=== PATIENT | male | born 1970 | race Caucasian/White ===

== ENCOUNTER 2023-09-07 22:36 | Inpatient (IN) | payer MEDICARE, SELFPAY ==
[2023-09-07 19:12] VITALS: BP 166/77
[2023-09-07 19:28] LABS: % Basophils 0.5 % (0-2); % Eosinophils 0.9 % (0-6); % Immature Granulocytes 0.8 % (0-0.5); % Neutrophils 73.8 % (42.2-75.2); Absolute Basophils 0.1 10^3/uL (0-0.2); Absolute Eosinophils 0.1 10^3/uL (0-0.7); Absolute Immature Granulocytes 0.1 10^3/uL (0-0.05); Absolute Lymphocytes 2.4 10^3/uL (1.2-3.4); Absolute Monocytes 0.8 10^3/uL (0.1-0.6); Absolute Neutrophils 9.7 10^3/uL (1.4-6.5); Hemoglobin 15.1 g/dL (13.0-18.0); Mean Corp Hgb Conc. 35.1 g/dL (33.0-37.0); Mean Corpuscular Hgb 30.9 pg (27.0-31.0); Mean Corpuscular Volume 88.1 fL (80.0-94.0); Mean Platelet Volume 7.8 fL (7.4-10.4); Nucleated Red Blood Cells % 0 % (-); Platelet Count 436 10^3/uL (130-400); Red Blood Cell Count 4.88 10^6/uL (4.70-6.10); Red Cell Dist. Width 14.5 % (11.5-14.5); White Blood Cell Count 13.1 10^3/uL (4.8-10.8)
[2023-09-07 19:34] VITALS: BMI 26.1
--- NOTE | 2023-09-07 19:37 | ED.GENMED ---
History of Present Illness
<LYNDON Winters - Last Filed: 09/07/23 21:51>
General
Chief Complaint: Skin Problem
Source: patient
Exam Limitations: none
Time Seen by Provider: 09/07/23 19:26
History of Present Illness
History of Present Illness:
This is a 53 year old male that comes in with c/o redness and swelling of the left thigh. States that he injects his thighs all the time as he is on Testosterone replacement therapy. States that he did an injection on Tuesday. states that he cleans
the area well and uses a fresh needle all the time. States that he started with swelling of the thigh and he went to yesterday. sates that he was given Bactrim DS and Cefpodoxime 200mg BID. States that he has had a total of 4 doses and his thigh
is more swollen and red and the lump id getting bigger. Denies any fever, chills, chest pain, SOB, abd pain, nausea, vomiting, diarrhea, headache, dizziness, urinary burning.
Past History
<LYNDON Winters - Last Filed: 09/07/23 21:51>
Past History
ED Past Medical History: Other (Testosterone replacement); Negative Asthma, HTN, Hypercholesterolemia or NIDDM
ED Past Surgical History: Appendectomy and Orthopedic (Bilateral knee surgery, Bilateral wrist surgery and bilateral elbow surgery)
Social History
Tobacco: Former smoker
Alcohol: Occasional
Personal: Single
Living: alone
Employment: Employed
Review of Systems
<LYNDON Winters - Last Filed: 09/07/23 21:51>
Review of Systems
All Other Systems: ROS reviewed and negative except as documented in HPI and ROS
Constitutional: Reports no symptoms; Denies fever or chills
EENT: Reports no symptoms
Respiratory: Reports no symptoms; Denies cough or trouble breathing
Cardiac: Reports no symptoms; Denies chest pain
ABD/GI: Reports no symptoms; Denies abdominal pain, nausea, vomiting or diarrhea
: Reports no symptoms; Denies dysuria, frequency or urgency
Musculoskeletal: Reports no symptoms
Skin: Reports other (left thigh redness with hardened area )
Neurological: Reports no symptoms; Denies dizzy or headache
Psychiatric: Reports no symptoms
Phy Exam
<LYNDON Winters - Last Filed: 09/07/23 21:51>
General Physical Exam
General Presentation: well appearing and no apparent distress
General age: appears stated age
General Skin: warm and dry
General Habitus: normal
General Mental: alert
General Hydration: appears well hydrated
ENT Exam
ENT Exam: TM's normal, pharynx normal and neck supple
Eye Exam
Eye Exam: EOMI
Cardiovascular Exam
Cardiovascular Exam: regular rate/rhythm, no edema, no murmur and normal peripheral pulses
Pulmonary Exam
Pulmonary Exam: lungs clear, no respiratory distress, no rales, chest non tender, no crackles, no rhonchi, no wheezing and no cough
Gastrointestinal Exam
Gastrointestinal Exam: normal bowel sounds, non tender, soft, no organomegaly, no pulsatile mass and non distended
Musculoskeletal Exam
Musculoskeletal Exam: full ROM
Skin Exam
Skin Exam: normal color, warm/dry, no petechia and redness (Left medial thigh onto the anterior aspect of the left thigh with hard palpable lump upper thigh. Tender to palpation)
Psychiatric Exam
Psychiatric Exam: normal mood/affect
Course
<LYNDON Winters - Last Filed: 09/07/23 21:51>
Orders/Labs/Results
Orders:
Orders
09/07/23 19:20
Complete Blood Count/With Diff Urgent
Comprehensive Metabolic Panel Urgent
Lactic Acid Urgent
09/07/23 19:42
US Non Vasc LOWER Ext LT Urgent
Comment: check for fluid or abscess
Reason For Exam: Left thigh lump.
Abnormal Lab Results
09/07/23
19:20
WBC 13.1 H 10^3/uL
(4.8-10.8)
Plt Count 436 H 10^3/uL
(130-400)
Abs Immat Gran (auto) 0.1 H 10^3/uL
(0-0.05)
Absolute Neuts (auto) 9.7 H 10^3/uL
(1.4-6.5)
Absolute Monos (auto) 0.8 H 10^3/uL
(0.1-0.6)
Immature Gran % 0.8 H %
(0-0.5)
Lymphocytes % 18.0 L %
(20.5-51.1)
Calcium 10.4 H mg/dl
(8.4-10.2)
AST 72 H U/L
(17-59)
ALT 194 H U/L
(0-50)
09/07/23 19:20
09/07/23 19:20
Leukocytosis, Plt slightly elevated. calcium sligtly elevated. AST/ALT elevation. Lactic acid normal at 1.2
Vital Signs
Initial and Last Documented VS:
Initial Vital Signs
Temp Pulse Resp BP Pulse Ox
97.9 F 85 18 166/77 98
09/07/23 19:12 09/07/23 19:12 09/07/23 19:12 09/07/23 19:12 09/07/23 19:12
Last Documented Vital Signs
Temp Pulse Resp BP Pulse Ox
97.9 F 72 18 122/65 99
09/07/23 19:12 09/07/23 20:30 09/07/23 20:30 09/07/23 21:00 09/07/23 21:00
Ana Lauralt;DO Salo Lyman Last Filed: 09/07/23 20:51>
Orders/Labs/Results
Orders:
Orders
09/07/23 19:20
Complete Blood Count/With Diff Urgent
Comprehensive Metabolic Panel Urgent
Lactic Acid Urgent
09/07/23 19:42
US Non Vasc LOWER Ext LT Urgent
Comment: check for fluid or abscess
Reason For Exam: Left thigh lump.
Abnormal Lab Results
09/07/23
19:20
WBC 13.1 H 10^3/uL
(4.8-10.8)
Plt Count 436 H 10^3/uL
(130-400)
Abs Immat Gran (auto) 0.1 H 10^3/uL
(0-0.05)
Absolute Neuts (auto) 9.7 H 10^3/uL
(1.4-6.5)
Absolute Monos (auto) 0.8 H 10^3/uL
(0.1-0.6)
Immature Gran % 0.8 H %
(0-0.5)
Lymphocytes % 18.0 L %
(20.5-51.1)
Calcium 10.4 H mg/dl
(8.4-10.2)
AST 72 H U/L
(17-59)
ALT 194 H U/L
(0-50)
09/07/23 19:20
09/07/23 19:20
Vital Signs
Initial and Last Documented VS:
Initial Vital Signs
Temp Pulse Resp BP Pulse Ox
97.9 F 85 18 166/77 98
09/07/23 19:12 09/07/23 19:12 09/07/23 19:12 09/07/23 19:12 09/07/23 19:12
Last Documented Vital Signs
Temp Pulse Resp BP Pulse Ox
97.9 F 72 18 122/65 99
09/07/23 19:12 09/07/23 20:30 09/07/23 20:30 09/07/23 21:00 09/07/23 21:00
Procedures
<LYNDON Winters - Last Filed: 09/07/23 21:51>
Incision/Drainage/Joint Aspiration
Left Anterior Thigh:
Anethesia: 1% Lidocaine with Epi
Preparation: cleaned with Betadine
Type of procedure: incise
Nature of site: abscess
Description of abscess: greater than 3cm
How much fluid was obtained?: large amount
Fluid description: bloody (with white puss)
Treatment: packed with gauze and antibiotics started
<LYNDON Winters - Last Filed: 09/07/23 21:51>
MDM/Problems Addressed
Differential Diagnosis Includes:
abscess, Cellulitis,
MDM/Problems Addressed:
This is a 53 year old male that comes in with c/o redness and a hard lump on the left thigh. Patient injects his Testosterone in his thighs all the time. This time he has a hard lump and redness. patient was seen at and put on Bactrim BS and
Cefpodoxime. States that it is getting worse.
Will get labs, US area for any fluid collection and possible admit for Cellulitis.
Back into see patient. Abscess opened and drained large amount of bloody/white puss. Packed with gauze and will admit patient for IV antibiotics. Hospitalist notified.
Chronic conditions affecting care:
NA
Acute Exacerbation and/or Progression of Chronic Illness:
NA
<LYNDON Winters - Last Filed: 09/07/23 21:51>
*Radiology
Radiology exam reviewed: radiology read reviewed (US=Complex fluid collection at the area of concern. This may be an abscess or hematoma. Clinical and laboratory correlation recommended. severe edematous changes of the surrounding soft tissue of
the proximal left thigh. )
*Pulse Oximetry
Patient hypoxic: no
*EKG
Interpreted by ED Provider?: NA
Rate: EKG- N/A
*Electronics Recycler Interpretation
Rate: Electronics Recycler- N/A
*Critical Care Note
Total Time (30-74mins, 75-104mins- exclusive of procedures): Not Applicable
ED Attending Note
<LYNDON Winters - Last Filed: 09/07/23 21:51>
-
Portions of this chart may have been created with voice recognition software.� Occasional wrong word or��sound alike� substitutions may have occurred due to the inherent limitations of voice recognition software.
<Oskar Moon DO - Last Filed: 09/07/23 20:51>
ED Attending Note
Patient seen and examined by attending physician: Yes
I performed the substantive portion of visit, reviewed & personally made and approve the management plan that is documented in note by myself or LUZ.: Yes
ED Attending Note:
Seen with [employer] SUPER[employer]OR examined independently left thigh pain and swelling fluctuance been on antibiotics for few days he injects testosterone to that site ultrasound report noted white count noted believe he would benefit from an incision and drainage
culture sideration for admission for IV antibiotics versus close outpatient follow-up
Discharge Plan
Departure
Patient Disposition: Admit
Date of Disposition: 09/07/23
Time of Disposition: 21:49
Admit to: Med/Surg
Presentation/result/management discussed w/ accepting MD/DO: Hospitalist
Patient with high blood pressure during this ER visit?: No
Condition: Good
Covid-19: Not Applicable
Discharge Problem:
Cellulitis of left thigh, Abscess of left thigh
Prescriptions:
No Action
Unobtainable
0
Referrals:
Anolik,Sabra, DO [Family Provider] -
Interventions
Interventions:
*Risk Screen - Suicide Last Done: 09/07/23 19:12
*General Assessment Last Done: 09/07/23 19:12
*Neglect/Abuse Screening Last Done: 09/07/23 19:12
ED- Fall Risk Assessment Last Done: 09/07/23 19:36
*ED COVID-19 Vaccine History Last Done: 09/07/23 19:36
ED-Skin Assessment Last Done: 09/07/23 19:36
Discharge Date and Time
Print Language: SAMMARINESE
[2023-09-07 19:40] LABS: Lactic Acid 1.2 mmol/L (0.7-2.0)
[2023-09-07 19:44] LABS: ALT (SGPT) 194 U/L (0-50); AST (SGOT) 72 U/L (17-59); Albumin 3.9 g/dl (3.5-5.0); Alkaline Phosphatase 68 U/L (38-126); Blood Urea Nitrogen 19 mg/dl (9-20); Calcium 10.4 mg/dl (8.4-10.2); Carbon Dioxide 26 mmol/L (22-30); Chloride 101 mmol/L (98-107); Estimated Creatinine Clearance 94 ml/min; Glucose 82 mg/dl (70-99); Potassium 4.8 mmol/L (3.5-5.1); Sodium 137 mmol/L (135-145); Total Bilirubin 0.7 mg/dl (0.2-1.3); Total Protein 6.7 g/dl (6.3-8.2); eGFR > 60.00
[2023-09-07 20:30] VITALS: BP 127/75
[2023-09-07 21:00] VITALS: BP 122/65
--- NOTE | 2023-09-07 21:49 | HPS.HSE ---
Family Physician
-
Family Physician: Sabra Fuller
Chief Complaint
-
left thigh redness, swelling
History of Present Illness
53 year old male with no significant PMH presented to us with left thigh redness, swelling of left thigh. States that he injects his thighs all the time as he is on Testosterone replacement therapy. States that he did an injection on Tuesday. States
that he started with swelling of the thigh on Tuesday and he went to yesterday. sates that he was given Bactrim DS and Cefpodoxime 200mg BID. States that he has had a total of 4 doses and his thigh is more swollen and red and the lump is getting
bigger. Denies any fever, chills, chest pain, SOB, abd pain, nausea, vomiting, diarrhea, headache, dizziness, urinary burning.
his abscess was drained in ER. received iv vanco and Zosyn. admitting for further management.
Medical History
Past Medical History
Past Medical History: Reports Other
Additional Past Medical History:
b/l carpel tunnel syndrome
osteoarthritis
Past Surgical History: Reports Other
Additional Past Surgical History:
appendectomy
right ACL repair
ulnar nerve release
Social History
Tobacco: Former Smoker
Alcohol: Occasional
Drug: None
Living: With Family
Employment: Employed
Family History
Family History: Not pertinent
Allergies / Home Medications
Allergies reflects when Allergies were last updated in [employer]
Home Medications with original date entered in [employer]
Allergy/Medication List:
Allergies
Allergy/AdvReac Type Severity Reaction Status Date / Time
No Known Allergies Allergy Unverified 09/07/23 19:12
Home Medications
Unobtainable 09/07/23
Review of Systems
-
Constitutional: Reports No Symptoms
EENT: Reports No Symptoms
Respiratory: Reports No Symptoms
Cardiac: Reports No Symptoms
Abdomen/GI: Reports No Symptoms
: Reports No Symptoms
Musculoskeletal: Reports No Symptoms
Skin: Reports Other (left thigh redness, swelling)
Neurological: Reports No Symptoms
Endocrine: Reports No Symptoms
Hematologic/Lymphatic: Reports No Symptoms
Psych: Reports No Symptoms
Physical Exam
Vital Signs
Vital Signs
Temp Pulse Resp BP Pulse Ox
98.1 F 72 18 122/65 99
09/07/23 21:48 09/07/23 20:30 09/07/23 20:30 09/07/23 21:00 09/07/23 21:00
Physical Exam
General: Well Developed, Well Nourished and No Apparent Distress
HEENT: NormoCephalic, Moist mucous membranes and Atraumatic
Respiratory: Clear
Cardiac: S1/S2 and Regular Rhythm; No Murmur or Rub
GI: Soft, Non Tender, Non Distended and Normal Bowel Sounds; No Organomegaly
Rectal: Deferred by Provider
Musculoskeletal: No Clubbing, No Cyanosis and No Edema
Skin: Rash and Other (left thigh redness, swelling)
Neuro: AO x 3 and Nonfocal/grossly intact
Psych: Calm
Laboratory Results
-
09/07/23 19:20
09/07/23 19:20
Laboratory Results
Lactic Acid 1.2 mmol/L (0.7-2.0) 09/07/23 19:20
Total Bilirubin 0.7 mg/dl (0.2-1.3) 09/07/23 19:20
AST 72 U/L (17-59) H 09/07/23 19:20
ALT 194 U/L (0-50) H 09/07/23 19:20
Alkaline Phosphatase 68 U/L (38-126) 09/07/23 19:20
Data Reviewed
-
Lab Data: Labs Reviewed by me
Impression/Plan
-
#left thigh abscess
-I and D at the bedside
-wbc 13.1
-LE US with Complex fluid collection at the area of concern. This may be an abscess or hematoma. Clinical and laboratory correlation recommended.Severe edematous change of the surrounding soft tissues of the proximal left thigh.
-iv vanco continued
-Tylenol prn for fever and pain
#elevated transaminase unclear cause likely anabolic steroid use
-ast 72,alt 194
-no c/o abdominal pain
-continue to trend
#DVT prophylaxis
-Lovenox
#CODE status
-full code
[2023-09-07] MEDS: ZOSYN 50 IV (21:52)
[2023-09-07 22:00] VITALS: BP 140/89
--- NOTE | 2023-09-07 22:07 | W.PN.UPDATE ---
Update Note
Progress Note Update
This is an addendum to the H&P written by Lachelle Morton on 09/07/2023.
Patient seen and examined independently with ASSESSMENT SERVICES MANAGER.
53-year-old male on hypotestosteronism on testosterone replacement, also uses anabolic steroids for cosmetic purposes, presenting with redness and swelling of the left thigh due to testosterone injection left eye. Ultrasound shows complex fluid
collection in the area s/p I&D. No fevers or chills.
Continue vancomycin.
Transaminitis likely due to anabolic steroid use. Denies significant consistent alcohol use. Outpatient follow-up with primary care.
[2023-09-07] MEDS: VANCOCIN 200 IV (22:36)
[2023-09-07 23:00] VITALS: BP 136/75
[2023-09-08 01:02] VITALS: BP 124/65; BMI 26.0
[2023-09-08] MEDS: MOTRIN 400 MG PO (01:31)
[2023-09-08] MEDS: VANCOCIN 200 IV (01:43)
--- NOTE | 2023-09-08 03:18 | PTCARENOTE ---
Pt admitted from ED. Pt AAOx3, + sore/discomfort to L thigh, at I & D site. Ibuprofen given x 1. Pt ambulating without issues. Pt afebrile, VSS. R FA IV C/D/I. Additional vanco given per MD order, upon arrival to unit. Lungs clear, pt on room
air. No N/V or stools. L thigh noted to be red, warm and swollen. Dressing over I & D site. Per pt, provider packed site in ED. Call massey provided and within reach. Awaiting further plan.
[2023-09-08 06:23] LABS: Hematocrit 42.5 % (39.0-52.0); Hemoglobin 14.7 g/dL (13.0-18.0); Mean Corp Hgb Conc. 34.6 g/dL (33.0-37.0); Mean Corpuscular Hgb 30.8 pg (27.0-31.0); Mean Corpuscular Volume 89.1 fL (80.0-94.0); Mean Platelet Volume 8.3 fL (7.4-10.4); Platelet Count 414 10^3/uL (130-400); Red Blood Cell Count 4.77 10^6/uL (4.70-6.10); Red Cell Dist. Width 14.5 % (11.5-14.5); White Blood Cell Count 10.5 10^3/uL (4.8-10.8)
[2023-09-08 06:56] LABS: ALT (SGPT) 144 U/L (0-50); AST (SGOT) 50 U/L (17-59); Albumin 3.3 g/dl (3.5-5.0); Alkaline Phosphatase 56 U/L (38-126); Blood Urea Nitrogen 20 mg/dl (9-20); Calcium 9.5 mg/dl (8.4-10.2); Carbon Dioxide 27 mmol/L (22-30); Chloride 102 mmol/L (98-107); Estimated Creatinine Clearance 94 ml/min; Glucose 83 mg/dl (70-99); Sodium 135 mmol/L (135-145); Total Bilirubin 0.7 mg/dl (0.2-1.3); Total Protein 5.8 g/dl (6.3-8.2); eGFR > 60.00
[2023-09-08 07:32] VITALS: BP 122/64
--- NOTE | 2023-09-08 08:13 | PHA.VAN.IN ---
Assessment
- Assessment
Renal Function: Appears similar to baseline
AUC Dosing Plan
- Dosing Variables
Dosing Weight (kg): 87
Dosing CrCl (ml/min): 94
Vd coefficient (L/kg): 0.7
- Empiric Dosing
Initial / Loading Dose: 2000mg - 1g 09/06 22:36 PLUS 1g 09/07 01:43
Maintenance Regimen: Vanc 1000mg Q12H starting at 1800
Estimated AUC (mcg*h/mL): 415
Estimated Peak (mcg*h/mL): 26.1
Estimated Trough (mcg/ml): 10.6
Estimated Half Life (H): 8.4
- Monitoring
No levels ordered at this time: consider levels in next few days
Pharmacokinetics Vancomycin I
- -
Patient Age: 53
Patient Sex: Male
Vancomycin Day #: 1
Indication: Skin And Soft Tissue
Requesting Provider: Carine Morton
Pertinent Antimicrobial Allergies:
NKDA
Height / Weight:
Height 6 ft
Actual Weight 86.727 kg
- Vital Signs / Lab Results
Temp Pulse Resp BP Pulse Ox
97.3 F 63 16 122/64 96
09/08/23 07:32 09/08/23 07:32 09/08/23 07:32 09/08/23 07:32 09/08/23 07:32
Lab Results - Hematology
09/07/23 09/08/23
19:20 05:18
WBC 13.1 H 10.5
Lab Results - Chemistry
09/07/23 09/08/23
19:20 05:18
BUN 19 20
Creatinine 1.0 1.0
Estimated Creat Clear 94 94
Albumin 3.9 3.3 L
09/07/23
19:20
Lactic Acid 1.2
--- NOTE | 2023-09-08 09:30 | W.PN.HOSP.TC ---
Today's Communication/Plan
-
Discharge home
Oral Bactrim
Assessment / Plan
Assessment / Plan
#left thigh abscess
- likely from non-sterile anabolic steroids
-wbc 10.5
-LE US with Complex fluid collection at the area of concern. This may be an abscess or hematoma. Clinical and laboratory correlation recommended.Severe edematous change of the surrounding soft tissues of the proximal left thigh.
-I and D at the bedside in the ED
-Discontinue Vanco
-Switch to p.o. antibiotic Bactrim
-Tylenol prn for fever and pain
-Wound care instructions regarding packing of the wound
#elevated transaminase unclear cause likely anabolic steroid use
-ast 72,alt 194
-no c/o abdominal pain
-Reported periodic blood work
#DVT prophylaxis
-Lovenox
#CODE status
-full code
Anticipated Discharge: Today
Subjective/Interval History
-
Date of Service: September 08, 2023
Objective Data
-
Labs:
Laboratory Results
09/08/23
05:18
WBC 10.5
Hgb 14.7
Hct 42.5
Plt Count 414 H
Sodium 135
Potassium 5.0
Chloride 102
Carbon Dioxide 27
BUN 20
Creatinine 1.0
Glucose 83
Calcium 9.5
Total Bilirubin 0.7
AST 50
ALT 144 H
Alkaline Phosphatase 56
Vital Signs:
Vital Signs
Temp Pulse Resp BP Pulse Ox
97.3 F 63 16 122/64 96
09/08/23 07:32 09/08/23 07:32 09/08/23 07:32 09/08/23 07:32 09/08/23 07:32
Review of Systems
-
History Source: Patient
Constitutional: Denies Fever
Respiratory: Denies Cough
Cardiac: Denies Chest Pain
Abdomen/GI: Denies Abdominal Pain
Genitourinary: Denies Dysuria
Musculoskeletal: Denies Joint Pain
Skin: Denies Itching or Rash
Neuro: Denies Dizzy or Headache
Hematologic / Lymphatic: Denies Bleeding
Physical Exam
-
General: Well Developed, Well Nourished and No Apparent Distress
HEENT: Normocephalic and Atraumatic
Respiratory: Clear to Auscultation
Cardiac: Regular Rhythm
GI: Soft and Nontender
Skin: Warm and Dry
Neuro: Awake, Alert and Oriented
Psych: Calm
Data Reviewed
-
Labs: Labs Reviewed by me and Discussed with Patient
[2023-09-08 13:05] LABS: Glycohemoglobin (HgbA1c) 5.1 % (4.0-5.6)
--- NOTE | 2023-09-08 14:02 | W.PN.UPDATE ---
Update Note
Progress Note Update
I saw and evaluated the patient. I reviewed the resident�s note and agree with findings and plan as documented in the resident�s note.
1. Left thigh abscess
- have h/o of abscess on the back in the past
- His abscess from using possibly non sterile anabolic steroid products. Denies reusing needle.
-Also uses testosterone injection and takes 2 times a weekly intramuscularly- prescribed by telehealth physician/ordered online
-Not diabetic/A1c of 5.1. Denies of history of MRSA. MRSA screen ordered -result pending
-Abscess was lanced in ER by ER physician and has been packed
-Still have significant induration around the abscess opening site.
-Wound care provided instruction of packing and supply for patient to use at home.
-Patient does not want to wait for final culture report.
-Currently on IV vancomycin will discharge on oral Bactrim course, patient have 5 days supply left
2. Anabolic steroid abuse
Testosterone replacement therapy
Elevated LFT
-Patient have elevated liver enzymes and trending down
-Patient stated of getting TRT from telemetry physician.
-Patient stated of having episodic blood work
DVT PPX -scd
Full code
Patient cleared for discharge to home today.
--- NOTE | 2023-09-08 14:34 | CM ---
met with patient at bedside.patient 's son lives with him in a condo with 5 livier and 5 steps down to one floor living.he amb i and is i with his adl's.he has no dmr.his pcp is dr roberts and he uses [facility].he has never had a
vn or been to ip rehab.
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
a supply of dressing changes ,script for po bactrim and dc home today. son to transport home.Plan home with no needs.
--- NOTE | 2023-09-08 14:37 | WOUNDNOTE ---
[facility] RN note: Patient admitted with left thigh abscess
See H&P for complete history.
Wound Location and type/assessment: Patient admitted with left thigh abscess s/p anabolic steroid injection. Abscess was drained in ER.
Appetite: Good
Pressure redistribution devices in place: Vers[employer] with [employer]
Plan: Per Dr.Patel wills to remove packing. Some bloody/purulent drainage when packing removed. Wound was packed with 1/4 inch plain packing and covered with silicone foam. Instructed patient on wound care as he will be performing own wound care at
home. He states he is familiar with packing b/c he had a shoulder abscess in the past that was packed. All questions answered. Patient said he would like to follow up at [facility]. RN Олег given update and orders confirmed with nurse. Plan is
for discharge this afternoon.
[2023-09-08 15:09] VITALS: BP 120/63
--- NOTE | 2023-09-08 16:49 | W.DCSUMMARY ---
Addendum entered and electronically signed by Rayray Wells MD 09/10/23 07:51:
Read, reviewed, and agree. See same day progress note for additional details. Time spent coordinating care, DC planning, review of DC plan of care with resident, transition of care, review of records in EMR, med rec, consults, notes, d/w
consultants, nursing, family, and CM 39 mins
Original Note:
Documented by User: Manuel Bishop MD, Resident 09/08/23 16:55
Discharge Summary
Discharge Data
Date of Admission: 09/07/23
Date of Discharge: 09/08/23
-
Pending Results: Yes
Additional Pending Results:
MRSA- pending
Hospital Course
Discharging Physician : Manuel Bishop MD ; Rayray Wells MD
Disposition : Home
Primary care physician : Sabra Fuller DO
Principal Discharge diagnosis : Left thigh abscess
Chronic Discharge diagnosis : None
Hospital Course : 53-year-old male with no significant past medical history presented with left thigh redness, swelling for 4 to 5 days. He completed 2 days of antibiotics from urgent care and reported no improvement. Lower extremity ultrasound
showed complex fluid collection at the area of concern. His abscess was drained in the ER and he received IV Vanco and Zosyn. His liver enzymes were found to be elevated likely due to anabolic steroid use. Wound care was consulted and he was
Provided with instructions to take care of the wound. IV antibiotic was discontinued and upon discharge he was instructed to use Bactrim and he reported that he has 5-day supply of Bactrim at home which was previously prescribed by urgent care.
Important imaging findings : LE USG: Complex fluid collection at the area of concern. This may be an abscess or hematoma. Clinical and laboratory correlation recommended.
Discharge Plan
-
Patient Disposition: Home (Routine Discharge)
Discharge Diagnosis/Procedures: Thigh abscess
Condition: Fair
Diet: Regular
Activity: As tolerated
Driving Restrictions: No driving
Bathing Restrictions: OK to Shower
Activity Restrictions/Additional Instructions:
Wound Care Instructions Left Thigh Abscess- Clean with normal saline or soap and water. Pack with 1/4 inch packing gauze, cover with silicone border foam. Change daily and as needed for drainage.
Follow up at wound care center call for an appointment.
Referrals:
Sabra Fuller DO [Family Provider] - in one week
Additional Discharge Medication Instructions: Finish your remaining 5 days of bactrim supply
Prescriptions:
New
sulfamethoxazole-trimethoprim [Bactrim DS] 800-160 mg tablet
1 tab PO BID Qty: 10 0RF
Discharge Orders:
Discharge Patient (As Directed); Ordered 09/08/23
Ordered By: Rayray Wells
Discharge Date and Time
Discharge Date/Time: 09/08/23 15:02
Print Language: NEPALESE

Documented by User: Rayray Wells MD 09/10/23 07:51
Discharge Summary
Discharge Data
Date of Admission: 09/07/23
Date of Discharge: 09/08/23
Discharge Plan
-
Patient Disposition: Home (Routine Discharge)
Discharge Diagnosis/Procedures: Thigh abscess
Condition: Fair
Diet: Regular
Activity: As tolerated
Driving Restrictions: No driving
Bathing Restrictions: OK to Shower
Activity Restrictions/Additional Instructions:
Wound Care Instructions Left Thigh Abscess- Clean with normal saline or soap and water. Pack with 1/4 inch packing gauze, cover with silicone border foam. Change daily and as needed for drainage.
Follow up at wound care center call for an appointment.
Referrals:
aSbra Fuller DO [Family Provider] - in one week
Additional Discharge Medication Instructions: Finish your remaining 5 days of bactrim supply
Prescriptions:
New
sulfamethoxazole-trimethoprim [Bactrim DS] 800-160 mg tablet
1 tab PO BID Qty: 10 0RF
Discharge Orders:
Discharge Patient (As Directed); Ordered 09/08/23
Ordered By: Rayray Wells
Discharge Date and Time
Discharge Date/Time: 09/08/23 15:02
Print Language: NEPALESE
== END 2023-09-08 15:02 | disposition home or self-care (01) | DRG 603 ==
LOC: 3 WEST ACU 22:36
PROVIDERS: Emergency Medicine; Registered Nurse; ADMITTING PHYSICIAN Hospitalist; ATTENDING PHYSICIAN Hospitalist; EMERGENCY PHYSICIAN Emergency Medicine; FAMILY PHYSICIAN Family Medicine
PROC: 0Y9D0ZZ Drainage of Left Upper Leg, Open Approach (ICD-10-PCS; 2023-09-08)
DX: L02.416 Cutaneous abscess of left lower limb (principal); R22.42 Localized swelling, mass and lump, left lower limb; R74.01 Elevation of levels of liver transaminase levels; F55.3 Abuse of steroids or hormones; T38.7X5A Adverse effect of androgens and anabolic congeners, initial encounter; Y92.9 Unspecified place or not applicable; Z79.890 Hormone replacement therapy; Z87.891 Personal history of nicotine dependence
CPT/HCPCS: 10060; 76882; 80053; 83036; 83605; 85025; 85027; 87070; 87205; 96365; 99285